=== PATIENT | male | born 1980 | race Caucasian/White ===

== ENCOUNTER 2021-08-29 12:24 | Emergency (ER) | payer BC, OTHER ==
[~2021-08-29] VITALS: Ht 165 cm; Wt 95.0 kg
--- OUTSIDE RECORDS SUMMARY | 2021-08-29 12:30 | XMS REPORT | Clinical Summary ---
Author Author [facility] Organization [facility] Address Unknown Phone Unavailable Care Team Providers Care Appeals Assistant Name Role Phone Leon Garrett MD PCP Source Comments Some departments are not documenting in the electronic medical record. If you d o not see the information that you expected, contact Release of Information in [facility] Health Information Management department at [phone] for further assistan ce in locating additional records.[facility] Allergies No Known Active Allergies Medications End Date Status Medication Sig Dispensed Refills Start Date Active MELATONIN PO Take by 0 mouth. Active sildenafil (REVATIO) 20 TAKE ONE 0 mg tablet TABLET BY 8 MOUTH EVERY DAY NEEDED Active diclofenac(+) (VOLTAREN) Apply 4 g 300 g 4 0 1 % topical gel topically to 8 affected area four times daily. Active Problems Problem Noted Date Right knee pain 01/06/2018 Mechanical pain of right knee 12/26/2017 Surgical History Surgery Date Site/Laterality Comments SHOULDER SURGERY 10/31/2009 - Right [facility] 10/30/2010 Family History Medical History Relation Name Comments Heart Disease Maternal Grandfather Diabetes Paternal Grandfather Cancer Paternal Grandmother Relation Name Status Comments Maternal Grandfather Paternal Grandfather Paternal Grandmother Social History Date Tobacco Use Types Packs/Day Years Used Never Smoker Smokeless Tobacco: Never Used Comments Alcohol Use Standard Drinks/Week 2x/wk Yes 0 (1 standard drink = 0.6 o z pure alcohol) Alcohol Habits Answer Date Recorded How often do you have a drink containing alcohol? No t asked How many drinks containing alcohol do you have on No t asked a typical day when you are drinking? How often do you have six or more drinks on one Not asked occasion? Comment: 2x/wk 12/26/2017 Sex Assigned at Date Recorded Not on file Last Filed Vital Signs Reading Time Taken Comments Vital Sign 137/78 01/06/2018 12:57 PM [facility] Blood Pressure 82 01/06/2018 12:57 PM [facility] Pulse - - Temperature - - Respiratory Rate - - Oxygen Saturation - - Inhaled Oxygen Concentration 93 kg (205 lb) 01/06/2018 12:57 PM [facility] Weight 195.6 cm (6' 5") 01/06/2018 12:57 PM [facility] [employer] Height 24.31 01/06/2018 12:57 PM [facility] [employer] Body Mass Index Plan of Treatment Health Maintenance Due Date Last Done Comments HIV SCREENING 1997 DTAP/TDAP VACCINES (1 - 2000 Tdap) HEPATITIS C SCREENING 2000 PHYSICAL (COMPREHENSIVE) 2000 EXAM INFLUENZA VACCINE 05/31/2021 Results Not on filefrom Last 3 Months Insurance Type Payer Benefit Subscriber ID Effective Phone Address Plan / Dates Group HMO CIGNA CIGNA NON [id number] 2017-P PPO/EPO resent [id number] (Home) [place] [phone] 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
[2021-08-29] MEDS ORDERED: RABIES IMMUNE GLOBULIN (KEDRAB) 1,500 UNITS/10 ML IM ONE (12:45)
[2021-08-29] MEDS ORDERED: RABIES VACCINE HUMAN DIPL CELL 1 ML/2.5 UNITS SYR IM ONE (12:45)
--- NOTE | 2021-08-29 12:45 | ED Integumentary General ---
General Chief Complaint: Bite-Animal/Human/Insect Stated Complaint: DOG BITE LEFT CALF Nursing Triage Note: AMB TO ED FROM [facility]. WAS BITTEN BY DOG UNKNOW [employer] TECHNICIAN. DID TALK TO POLICE ABOUT. URGENT CARE DID PLACE SUTURES AT BITE ON L LEG AND CALLED [facility]. Source: patient, family Exam Limitations: no limitations History of Present Illness Date Seen by Provider: Aug 29, 2021 Time Seen by Provider: 12:35 Initial Comments Patient is a 41-year-old male who presents to the emergency room after an unprovoked dog bite while running. Patient states the dog just came up to him bit him and ran off. He was unable to locate the home of the dog. Patient went to urgent care and had wound irrigated and closed and was given a prescription for Augmentin that was sent to [facility]. Patient presents to the emergency department for rabies prophylaxis immunization. He has no significant past medical history, no current complaints. All other review of systems reviewed and negative except as stated. Timing/Duration: just prior to arrival Severity: moderate Location: extremities (left lower leg) Possible Cause: other (dog bite) Associated Symptoms: denies symptoms Allergies and Home Medications Allergies Coded Allergies: No Known Drug Allergies (Unverified , 08/29/21) Patient Home Medication List Home Medication List Reviewed: Yes Review of Systems Review of Systems Constitutional: see HPI EENTM: no symptoms reported Respiratory: no symptoms reported Cardiovascular: no symptoms reported Gastrointestinal: no symptoms reported Genitourinary: no symptoms reported Musculoskeletal: no symptoms reported Skin: other (dog bite/ laceration left lower leg) Psychiatric/Neurological: No Symptoms Reported All Other Systems Reviewed Negative Unless Noted: Yes Past Ydykdbv-Walubk-Oqdtcd Hx Patient Social History Substance use?: No Immunizations Up To Date First/Initial COVID19 Vaccinat: DECEMBER COVID19 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 Wound edges are adequately closed. No active bleeding from the wound. mildly tender to palpation; he has small "v-shaped" laceration (about 0.5cm) in the center of the posterior distal calf and a superficial abrasion just proximar to this.) Neurologic/Psychiatric: alert, normal mood/affect, oriented x 3 Skin: normal color, warm/dry Progress/Results/Core Measures Results/Orders My Orders Orders - VIVEK MOBLEY MD Rabies Vaccine Human Dipl Cell (Rabavert (08/29/21 12:45) Rabies Immune Globulin/Pf 10ml (Kedrab 1 (08/29/21 12:45) Vital Signs/I&O 08/29/21 12:29 Temp 36.6 Pulse 69 Resp 18 B/P (MAP) 140/97 (111) Pulse Ox 97 O2 Delivery Room Air Blood Pressure Mean: 111 Progress Progress Note : Time: 13:38 Progress Note Patient received Rabies Vaccine here in the department as well as Rabie IG, a total of 1900Iu. 5cc infiltrated around the wound, 2cc in the posterior calf wound and the rest IM in the left deltoid and anterior thighs bilaterally. He tolerated the injections very well. Patient monitored for 20 min post injection. He had reported no issues in he or family members with thrombotic medical issues or hemolytic issues Patient counselled again on wound care. Given his order for his subsequent vaccine dosing. Both he and his verbalize understanding, al questions are sought and answered. Departure Impression Primary Impression: Dog bite of left lower leg Qualified Codes: S81.852D - Open bite, left lower leg, subsequent encounter; W54.0XXD - Bitten by dog, subsequent encounter Additional Impression: Encounter for prophylactic administration of rabies immune globulin Disposition: 01 HOME, SELF-CARE Condition: Stable Departure-Patient Inst. Decision time for Depature: 13:03 Referrals: NO,LOCAL PHYSICIAN (PCP/Family) Primary Care Physician Patient Instructions: Rabies Vaccine Add. Discharge Instructions: You will need to have subsequent rabies vaccination on day 3 (09-01-21), day 7 (09-05-21) and day 14 (09-12-21). Watch the wound for any signs of infection, such as redness, swelling, puss-like discharge. Take your Augmentin antibiotic prescription as directed. Be sure and finish the whole course. Ibuprofen or tylenol as needed for pain. Please follow up with your primary care physician. Return to the ER for any new, concerning or emergent complaints. VIVEK MOBLEY MD Aug 29, 2021 12:45
[2021-08-29 14:00] VITALS: BP 140/97
== END 2021-08-29 14:00 | disposition home or self-care (01) ==
LOC: ER 12:28
DX: S81.852A Open bite, left lower leg, initial encounter (principal); Z23 Encounter for immunization; W54.0XXA Bitten by dog, initial encounter
CPT/HCPCS: 90675; 90676; 99284